=== PATIENT | female | born 1990 | race Hispanic/Latino ===

== ENCOUNTER 2017-03-09 18:46 | Emergency (ER) | payer BC ==
[2017-03-09 18:55] VITALS: BP 129/69; PULSE 81; RESP 16; TEMP 98; O2SAT 100
--- NOTE | 2017-03-09 20:08 | ED PDOC ---
Lower Extremity Pain/Injury Time Seen by Provider: 03/09/17 20:07 Chief Complaint (Nursing): Lower Extremity Problem/Injury Chief Complaint (Provider): knee pain History Per: Patient (26 y/o female here with right knee injury that occurred last night. Has h/o ACL injury with repair 2013. Patient unable to get appt with ortho for 1 month and requests MRI of knee.) Past Medical History Reviewed: Historical Data, Nursing Documentation, Vital Signs Vital Signs: Last Vital Signs Temp 98.0 F 03/09/17 18:52 Pulse 81 03/09/17 18:52 Resp 16 03/09/17 18:52 BP 129/69 03/09/17 18:52 Pulse Ox 100 03/09/17 18:52 - Surgical History Surgical History: No Surg Hx - Family History Family History: States: No Known Family Hx - Home Medications Home Medications: Ambulatory Orders Medication Instructions Recorded Naproxen [Naprosyn Tab] 1 tab PO Q8 PRN #21 tab 03/09/17 - Allergies Allergies/Adverse Reactions: Allergies Allergy/AdvReac Type Severity Reaction Status Date / Time No Known Allergies Allergy Verified 03/09/17 19:45 Review of Systems ROS Statement: Except As Marked, All Systems Reviewed And Found Negative Musculoskeletal: Positive for: Other (knee pain) Physical Exam - Reviewed Nursing Documentation Reviewed: Yes Vital Signs Reviewed: Yes - Physical Exam Appears: Positive for: Well, Non-toxic, No Acute Distress Head Exam: Positive for: ATRAUMATIC, NORMAL INSPECTION, NORMOCEPHALIC Skin: Positive for: Normal Color, Warm, DRY Eye Exam: Positive for: EOMI, Normal appearance, PERRL ENT: Positive for: Normal ENT Inspection Neck: Positive for: Normal, Painless ROM Cardiovascular/Chest: Positive for: Regular Rate, Rhythm Respiratory: Positive for: CNT, Normal Breath Sounds Gastrointestinal/Abdominal: Positive for: Normal Exam, Bowel Sounds, Soft Back: Positive for: Normal Inspection Extremity: Positive for: Normal ROM, Tenderness (tender right lateral knee; minimal effusion. ecchymosis noted right lateral region.) Neurologic/Psych: Positive for: Alert, Oriented - ECG O2 Sat by Pulse Oximetry: 100 - Progress ED Course And Treament: Knee xry: hardware noted intact: no acute fx Placed in knee immobilizer and given crutch instructions Disposition - Clinical Impression Clinical Impression: Knee injury - Patient ED Disposition Is Patient to be Admitted: No - Disposition Referrals: Sania Wise MD [Staff Provider] - Disposition: Routine/Home Disposition Time: 20:49 Condition: FAIR Prescriptions: Naproxen [Naprosyn Tab] 1 tab PO Q8 PRN #21 tab PRN Reason: Pain, Moderate (4-7) Instructions: Knee Immobilizer (ED), Knee Sprain (ED) Forms: [facility] ED School/Work Excuse
--- NOTE | 2017-03-10 10:40 | RAD ---
PROCEDURE: Right knee 03/09/2017 HISTORY: knee injury COMPARISON: None. FINDINGS: BONES: Current study reveals evidence of prior ACL reconstruction with bone tunnels in the mid and medial aspect of the tibial plateau and metaphysis as well as within the lateral distal femur within adjacent metallic fixation clip along cortical surface lateral metaphysis of the femur. Trace joint effusion not excluded however note that due to over flexion in the lateral projection, evaluation for effusion is limited JOINTS: Joint spaces are preserved. JOINT EFFUSION: As above OTHER FINDINGS: None. IMPRESSION: Postoperative changes of ACL reconstruction. Questionable trace joint effusion however evaluation joint effusion is limited due to over flexion in the lateral projection
== END 2017-03-09 21:18 | disposition home or self-care (01) ==
LOC: H.ER 18:46
DX: S89.91XA Unspecified injury of right lower leg, initial encounter (principal); X50.9XXA Other and unspecified overexertion or strenuous movements or postures, initial encounter; Y92.89 Other specified places as the place of occurrence of the external cause